=== PATIENT | female | born 1955 | race Caucasian/White ===

== ENCOUNTER 2024-01-31 10:20 | Day surgery (SDC) | payer MEDICARE, SELFPAY ==
[2024-01-31] MEDS: ONDANSETRON 4 MG/2 ML INJ IV (10:50)
--- NOTE | 2024-01-31 10:50 | PM.HP.1 ---
History of Present Illness History of Present Illness Date Patient Seen: 01/31/24 Chief complaint: SDC Narrative: Personal history of colon polyps [facility] Medical History (Updated 01/31/24 @ 10:45 by Cait Rodriguez RN) Hypothyroid Meds Home Medications and Allergies Home Medications Medication Instructions Recorded Confirmed Type thyroid (pork) 90 mg tablet (OCCASIONAL BABYSITTER 90 mg PO DAILY 01/31/24 01/31/24 History Thyroid) Allergies Allergy/AdvReac Type Severity Reaction Status Date / Time aspirin Allergy Intermediate Swelling Verified 01/31/24 10:42 of the Eye Exam Narrative Exam Narrative: Oropharynx free of lesions Chest clear to auscultation percussion Cardiac exam reveals no S3 or murmur Assessment & Plan Assessment & Plan narrative: Personal history of colon polyps need for follow-up colonoscopy. Risks, benefits, alternatives have been explained. Time-Based Coding :: [TOTAL MINUTES] spent with patient and on the chart (including review of chart, obtaining history, exam, reviewing outside data, placing orders, documenting exam and treatment plan, and counseling patient) on [DATE].
--- NOTE | 2024-01-31 10:51 | PM.OP.COLON ---
Operative Date/Time/Diagnoses Date of procedure: 01/31/24 Pre-op diagnosis: See indication and findings Procedure & Clinicians Study performed: Colonoscopy Indications: Personal history of polyps Surgeon: Bhargav Morales Procedure Notes Procedure in detail: After informed consent was obtained the patient was placed in left lateral decubitus position. The video colonoscope was introduced the rectum slowly advanced cecum. Preparation was good. On slow withdrawal mucosa was carefully examined. The scope was removed. The patient tolerated procedure well. Blood loss none Complications none Sedation mac Findings 1. Normal colonoscopy to cecum Patient should have follow-up colonoscopy in 5 years
[2024-01-31 10:55] VITALS: BP 138/79; PULSE 64; RESP 16; TEMP 36; O2SAT 99
[2024-01-31] MEDS: LACTATED RINGERS 1,000 ML 42 ML IV (11:08)
[2024-01-31 11:39] VITALS: BP 100/51; PULSE 65; RESP 14; TEMP 36.7; O2SAT 93
[2024-01-31 11:44] VITALS: BP 95/54; PULSE 66; RESP 13; O2SAT 93
[2024-01-31 11:48] VITALS: BP 110/61; PULSE 69; RESP 12; O2SAT 97
[2024-01-31 11:52] VITALS: BP 108/62; PULSE 69; RESP 13; TEMP 36.2; O2SAT 97
[2024-01-31 12:04] VITALS: BP 106/62; PULSE 64; RESP 13; TEMP 36.7; O2SAT 97
== END 2024-01-31 12:20 | disposition home or self-care (01) ==
PROVIDERS: PCP Family Medicine; Referring Provider Internal Medicine Gastroenterology; Visit Provider Internal Medicine Gastroenterology
PROC: 0DJD8ZZ Inspection of Lower Intestinal Tract, Via Natural or Artificial Opening Endoscopic (ICD-10-PCS; CPT 45378; principal; 2024-01-31 12:30)
DX: Z12.11 Encounter for screening for malignant neoplasm of colon (principal); Z86.0100 Personal history of colon polyps, unspecified
CPT/HCPCS: G0105; J2405; J2704